=== PATIENT | female | born 1940 | race Caucasian/White ===

== ENCOUNTER 2017-03-14 22:05 | Observation (INO) | payer MEDICARE, OTHER ==
[~2017-03-14] VITALS: Ht 162.6 cm; Wt 99.0 kg
[~2017-03-14 22:05] MED LIST: ASCO100089 PO; ATOR80TA77 PO; CHOL10002 PO; CHOL200020 PO; COU5 PO; FURO20TA PO; GLIP2.5T2 PO; IRBE150T21 PO; IRBE300T18 PO; METO25TA6 PO; MTP50TCR PO; MULT-56 PO; PROP225C6 PO; SMV40T PO; WARF2.5T82 PO; WARF5TAB7 PO; atorvastatin
[2017-03-14 22:19] VITALS: BP 173/81; PULSE 59; RESP 18; O2SAT 99
--- NOTE | 2017-03-14 22:33 | ED.REPORT ---
HPI-General Illness Date of Service Mar 14, 2017 ED Provider: Leon Singh DO Pt is a 76 y/o female with a history of DM II, a-fib, HTN, and hyperlipidemia on Warfarin who presents to the ED c/o hypoglycemia onset today. She states she has been running hypoglycemic all day today. Her lowest reading was at 45, in which she tried another glucometer and had the same results. Pt reports having feelings of "low sugar" that she cannot describe. She has a current UTI that is being treated by Cipro. She denies fever, chills, cough, nausea, vomiting, diarrhea, constipation, SOB, or any other symptoms. Nursing Notes Stated Complaint: LOW BLOOD SUGAR Chief Complaint: General Complaint Nursing Notes Reviewed: Yes Allergies: Coded Allergies: metformin (Verified Allergy, Mild, Rash, 03/14/17) lisinopril (Verified Allergy, Unknown, 09/18/14) Scheduled ([atorvastatin]) 80 DAILY Ascorbic Acid (Vitamin C) 1,000 Mg Tab.chew 500 MG PO DAILY Atorvastatin Calcium (Atorvastatin Calcium) 80 Mg Tablet 80 MG PO DAILY Cholecalciferol-Expunged Drug, Do Not Renew! (Vitamin D3-Expunged Drug, Do Not Renew!) 1,000 Unit Tablet 1,000 UNITS PO DAILY Furosemide-Expunged Drug, Do Not Renew! (Furosemide-Expunged Drug, Do Not Renew! ) 20 Mg Tablet 20 MG PO DAILY Glipizide ER (Glipizide ER) 2.5 Mg Tab.er.24 2.5 MG PO DAILY Irbesartan (Irbesartan) 300 Mg Tablet 300 MG PO DAILY Irbesartan-Expunged Drug, Do Not Renew! (Irbesartan-Expunged Drug, Do Not Renew! ) 150 Mg Tablet 300 MG PO DAILY Metoprolol Suc-Expunged Drug, Do Not Renew! (Metoprolol Suc-Expunged Drug, Do Not Renew!) 50 Mg Tber 25 MG PO BID Metoprolol Tartrate (Metoprolol Tartrate) 25 Mg Tablet 25 MG PO BID Metoprolol Tartrate (Metoprolol Tartrate) 25 Mg Tablet 25 MG PO BID Propafenone-Expunged Drug, Do Not Renew! (Propafenone-Expunged Drug, Do Not Renew!) 225 Mg Cap.er.12h 325 MG PO BID Simvastatin-Expunged Drug, Choose New Med! (Simvastatin-Expunged Drug, Choose New Med!) 40 Mg Tablet 20 MG PO HS INPATIENT MAX DOSE 40 MG Warfarin Inactive Drug Do Not Use (Coumadin Inactive Drug Do Not Use) 5 Mg Tablet 5 MG PO Mon,Wed,Fri,Sat 1700 (5 PM) DAILY Warfarin Inactive Drug Do Not Use (Coumadin Inactive Drug Do Not Use) 5 Mg Tablet 2.5 MG PO Tue,,Tuesday AND TUESDAY Warfarin Sodium (Warfarin Sodium) 5 Mg Tablet 5 MG PO DAILY Warfarin Sodium (Warfarin Sodium) 2.5 Mg Tablet 2.5 MG PO DAILY Miscellaneous Medications Cholecalciferol (Vitamin D3) (Vitamin D-3) 2,000 Unit Capsule 1,000 UNIT PO Irbesartan (Irbesartan) 300 Mg Tablet 300 MG PO Multivitamin (Daily Vitamin) 1 Each Tablet 1 EACH PO Propafenone ER (Propafenone ER) 225 Mg Cap.er.12h 225 MG PO General Time Seen by MD: 22:33 Chief Complaint Other (Hypoglycemia) Hx Obtained From: Patient Arrived By: Walk-in Sudden in Onset?: Yes Onset Occurred: 5 - 8 hours ago Context Related History: Reports Diabetes mellitus Recent Healthcare: No recent hospitalization, Recent doctor visit Similar Sx Previous: No Past Medical History Past Medical History A-fib Hiatal hernia Edema Anxiety Reports: Diabetes mellitus, Hyperlipidemia, Hypertension Past Surgical History Bladder surgery, recent cardiac ablation for atrial fibrillation Reports: Cholecystectomy, Hysterectomy Smoking History Never Smoker Social History Alcohol Use: Denies alcohol use Other Social History: Ambulatory Status Independent Review of Systems Hypoglycemia Full Review of Systems Constitutional: Denies: Chills, Fever Respiratory: Denies: Non-productive cough, Prod cough, clear, Shortness of breath GI: Denies: Constipation, Diarrhea, Nausea, Vomiting Complete sys rev & neg: except as marked. Physical Exam Vital Signs Vital Signs Date Time Temp Pulse Resp B/P Pulse Ox O2 Delivery O2 Flow Rate FiO2 03/15/17 06:04 66 14 152/48 96 Room Air 03/15/17 01:36 36.5 56 15 152/53 94 Room Air 03/15/17 00:20 66 22 155/54 94 Room Air 03/14/17 22:19 36.2 59 18 173/81 99 Room Air Initial VS: Reviewed Head / Eyes: Atraumatic, Normocephalic Neck: Supple, Full range of motion Abdomen / GI: Soft, Non-tender Extremities: Vascular intact, Neuro intact, No swelling, No tenderness Skin: Warm, Dry, No cyanosis Neurologic: Alert, Oriented, Nonfocal Psychiatric: Mood/affect normal, Behavior normal, Normal thought content General/Constitutional: Awake, Alert Appearance / Presentation: Positive: Obese Respiratory / Chest: Atraumatic, Breath sounds NL, Breath sounds = bilat, No respiratory distress Cardiovascular: Heart rate NL, Regular rhythm, Heart sounds NL Interpretation & Diagnostics Lab Results Interpretation Result Diagram: 03/14/170 03/14/172239 Test 03/14/17 22:36 03/14/17 22:40 Urine Color Yellow (YELLOW) Urine Appearance Slightly cloudy Urine pH 5.5 (5.0-8.0) Urine Specific [place] 1.015 (1.003-1.035) Urine Protein Negativemg/dL (NEG,TRACE) Urine Glucose (UA) Negativemg/dL (NEGATIVE) Urine Ketones Negativemg/dL (NEGATIVE) Urine Occult Blood Negative (NEGATIVE) Urine Nitrite Negative (NEGATIVE) Urine Bilirubin Negative (NEGATIVE) Urine Urobilinogen Normalmg/dL (NORMAL) Urine Leukocyte Esterase Small (NEGATIVE) Urine RBC 0-2/hpf (0-2) Urine WBC 11-50/hpf (0-5) Urine Epithelial Cells Moderate/hpf (NONE-MOD) Urine Crystals None seen (NONE SEEN) Urine Bacteria Few/hpf (NONE-FEW) Urine Hyaline Casts None/lpf (NONE) Urine Granular Casts None seen (NONE SEEN) Urine Waxy Casts None seen (NONE SEEN) Urine Red Blood Cell Casts None seen (NONE SEEN) Urine White Blood Cell Casts None seen (NONE SEEN) Urine Mucus None seen (None Seen) Urine Trichomonas None seen (NONE SEEN) Urine Yeast None (NONE SEEN) Urinalysis Comment None Urine Culture Reflexed Indicated White Blood Count 9.1th/mm3 (3.8-10.1) Red Blood Count 4.36mil/mm3 (3.90-5.20) Hemoglobin 13.5g/dL (12.0-15.6) Hematocrit 40.3% (35.0-46.0) Mean Corpuscular Volume 92.4fL (81-100) Mean Corpuscular Hemoglobin 31.0pg (27.0-35.0) Mean Corpuscular Hemoglobin Concent 33.5% (32.0-37.0) Red Cell Distribution Width 13.8% (12.3-15.4) Platelet Count 288bil/L (150-400) Neutrophils (%) (Auto) 46.1% (40-74) Lymphocytes (%) (Auto) 37.8% (14-46) Monocytes (%) (Auto) 13.9% (4-12) Eosinophils (%) (Auto) 1.7% (0-5) Basophils (%) (Auto) 0.4% (0-3) Prothrombin Time 33.1sec (8.1-12.5) Prothromb Time International Ratio 3.02ratio Sodium Level 140mEq/L (134-144) Potassium Level 4.2mEq/L (3.5-5.2) Chloride Level 102mEq/L (97-108) Carbon Dioxide Level 24mmol/L (18-29) Blood Urea Nitrogen 21mg/dL (8-27) Creatinine 1.30mg/dL (0.57-1.00) Estimat Glomerular Filtration Rate 57mL/min (>59) Glucose Level 96mg/dL (60-99) Calcium Level 9.8mg/dL (8.5-10.1) Total Bilirubin 0.3mg/dL (0.0-1.2) Aspartate Amino Transf (AST/SGOT) 22U/L (0-50) Alanine Aminotransferase (ALT/SGPT) 22U/L (0-32) Alkaline Phosphatase 83U/L (25-165) Total Protein 7.3g/dL (6.4-8.4) Albumin 4.0g/dL (3.4-5.0) Re-Eval/Medical Decision Med Decision/Clinical Course This a very pleasant newly diagnosed type II diabetic and has been placed on glipizide for about a month. She has been a difficulties with hypoglycemia. Today she was feeling hypoglycemic and this was confirmed with a blood sugar reading in the 40s. She ate and drank and did not bring her blood sugar up since she came in. On presentation she had normal exam her blood sugars in the 80s. She was given juice and her blood sugar trended up. She has been observed for 4 hours and her blood sugars now roughly 115. She is asymptomatic. He does look like she has a urinary tract infection. She is on warfarin and her INRs roughly 3. Going to culture her urine. Place her on Keflex. She is not to take glipizide for blood sugars greater than 180. She watch her blood sugar closely. Follow diabetic diet. Repeat her INR in 3 days and see her doctor this week in follow-up. Source of Hx: Old records Counseled Regarding: Diagnosis, Lab results Discharge & Departure Shift Change Sign-Out Response to Therapy: Improved Departure Notes Patient remains hypoglycemic despite multiple small meals. She is not rising as hoped and expected, and is therefore placed on D5W drip and admitted observation status. UTI will be treated initially with an IV dose of Rocephin. Primary Impression: Hypoglycemia due to type 2 diabetes mellitus Additional Impression: Urinary tract infection Urinary tract infection type: acute cystitis Hematuria presence: without hematuria Qualified Code: N30.00 - Acute cystitis without hematuria Discharge Condition All VS Reviewed: Yes Condition: Stable Patient Instructions: Hypoglycemia in a Person with Diabetes (GEN), Urinary Tract Infection in Women (DC) Additional Instructions: Check your blood sugar every 2 hours tonight and anytime you feel like your blood sugar is getting low. Do not take your glipizide until your blood sugars consistently greater than 180. Your INR is 3.0. You may start taking her warfarin tomorrow. Have your INR checked in 3 days because you are going to be put on Keflex for the urine infection. The Keflex may alter the efficacy of the warfarin and thin your blood further. We are culturing your urine. Follow- up this week with your primary care physician to review the urine culture results. Take Keflex 3 times daily for 5 days. Return if any problems or any new or worrisome symptoms. Referrals: Rebekah Ignacio MD (PCP) Care Transferred to: [facility] Transferred at: 03:00 Scribe Attestation Portions of this note were transcribed by Vianey Ku. I, Dr. Singh, personally performed the history, physical exam and medical decision-making; I reviewed and confirmed the accuracy of the information in the transcribed note. copies to: Rebekah Ignacio MD, Todd P DO Mar 14, 2017 22:33 Vianey Ku Mar 15, 2017 00:08 Gurjit Devi MD Mar 15, 2017 07:08
[2017-03-14 22:48] LABS: BASOPHILS % (AUTO) 0.4 % (0-3); EOSINOPHILS % (AUTO) 1.7 % (0-5); MONOCYTES % (AUTO) 13.9 % (4-12); Mean Corpuscular Volume 92.4 fL (81-100); NEUTROPHILS % (AUTO) 46.1 % (40-74); Platelet Count 288 bil/L (150-400)
[2017-03-14 22:52] LABS: APPEARANCE,URINE SLIGHTLY CLOUDY (CLEAR,HAZY); COLOR,URINE YELLOW (YELLOW); OCCULT BLOOD,URINE NEGATIVE (NEGATIVE); PH,URINE 5.5 (5.0-8.0); UROBILINOGEN,URINE NORMAL (NORMAL)
[2017-03-15] VITALS (11 sets, daily range): BP systolic 123–159; BP diastolic 48–82; PULSE 56–70; RESP 14–22; O2SAT 94–96
[2017-03-15 00:06] LABS: INR 3.02 ratio
[2017-03-15] MEDS ORDERED: Dextrose 5% 250 ML IV ONE (05:53)
[2017-03-15] MEDS ORDERED: Dextrose 5% 1,000 ML IV SCH (05:55)
[2017-03-15] MEDS ORDERED: cefTRIAXone Inj 2,000 MG in Dextrose 5% Minibag Plus 50 ML IV ONE (05:55)
[2017-03-15] MEDS ORDERED: Ondansetron 2 mg/mL 2 mL Inj IVPUSH PRN (05:55)
[2017-03-15] MEDS ORDERED: OXYB5TAB PO (08:10)
[2017-03-15] MEDS ORDERED: OMEP1PAC5 PO (08:15)
--- NOTE | 2017-03-15 08:20 | PCM.HPMED ---
Subjective Date of Service Mar 15, 2017 Primary Provider: Admitting Physician: Angel Molina MD Primary Care Physician: Rebekah Ignacio MD Attending Physician: Angel Molina MD Chief Complaint: Hypoglycemia History of Present Illness: 76-year-old female with diabetes, A. fib, hypertension, HLD presented after serial episode of low sugar noticed at home. Patient was diagnosed with type II diabetes in 2001, had been diet controlled until 5-4 weeks ago. PCP noticed that her A1c was slowly creeping up to 7.1 recently, decided to treat with oral hypoglycemic agent. Patient first started on metformin but developed diarrhea on top of her chronic diarrhea, therefore it was stopped. Patient then start taking glipizide for last 4-5 weeks. Patient's sugar is normally 70s to 80s fasting with glipizide, had not experienced any low sugar symptoms at all until yesterday. Patient checked her sugar after dinner, it was 50s, continued to be 45. Patient fell little weak but no other associated symptoms such as shaking or sweating, confusion, chest pain, cough, sputum, nausea, vomiting, abdominal pain. Patient has been taking up heal for urinary incontinence prescribed by urologist, which helped her incontinence and chronic diarrhea which she had for few years. Last week patient developed this diarrhea again, watery, no mucus no bloody, up to 5 times per day to 10 times per day. Patient went to PCP again , stool was tested came back negative. However her urine study shows cystitis, prescribed ciprofloxacin for 3 days which she finished. Patient did not have any changes of her urinary habits denied dysuria, more frequent urination, urinary urge. Patient was not told that her kidney function is bad, but was told that she was dehydrated. Patient has been compliant to her medication including Coumadin, LALO inhibitor. In the emergency vitals were stable, On presentation she had normal exam her blood sugars in the 80s. She was given juice and her blood sugar trended up. She has been observed for 4 hours and her blood sugars now roughly 115. Patient was started on D5W drip. UA showed probable ongoing cystitis, was given ceftriaxone 1 dose and ciprofloxacin. During the interview on the floor [facility] [place], patient was alert and oriented, denied headache, dizziness, tiredness, very pleasant and communicative. Review of Systems: Pertinent positives as noted in history of present illness. All other systems were reviewed and are negative Allergies Coded Allergies: metformin (Verified Allergy, Mild, Rash, 03/14/17) lisinopril (Verified Allergy, Unknown, 09/18/14) Home Medications Atorvastatin Calcium (Atorvastatin Calcium) 80 Mg Tablet 80 MG PO DAILY Cholecalciferol-Expunged Drug, Do Not Renew! (Vitamin D3-Expunged Drug, Do Not Renew!) 1,000 Unit Tablet 1,000 UNITS PO DAILY Glipizide ER (Glipizide ER) 2.5 Mg Tab.er.24 2.5 MG PO DAILY Irbesartan (Irbesartan) 300 Mg Tablet 300 MG PO DAILY Metoprolol Suc-Expunged Drug, Do Not Renew! (Metoprolol Suc-Expunged Drug, Do Not Renew!) 50 Mg Tber 25 MG PO BID Propafenone-Expunged Drug, Do Not Renew! (Propafenone-Expunged Drug, Do Not Renew!) 225 Mg Cap.er.12h 325 MG PO BID Warfarin Inactive Drug Do Not Use (Coumadin Inactive Drug Do Not Use) 5 Mg Tablet 5 MG PO Mon,Wed,Tue,Sat 1700 (5 PM) DAILY Warfarin Inactive Drug Do Not Use (Coumadin Inactive Drug Do Not Use) 5 Mg Tablet 2.5 MG PO Tue,,Tuesday AND TUESDAY PMH As described above in history of present illness Surgical History 2 benign breast nodules remotely removed 2001 hysterectomy Cystocele, rectocele repair Ablation twice for A. fib Family History Father had heart attack in 50s in 90s Social History Hx Alcohol Use: No Hx Substance Use: No Hx Tobacco Use: No Smoking Status: Never Smoker Exam Vital Signs Vital Sign - Last Date Time Temp Pulse Resp B/P Pulse Ox O2 Delivery O2 Flow Rate FiO2 03/15/17 06:43 36.5 66 14 152/48 96 Room Air Intake and Output 03/14/17 03/14/17 03/15/17 Cumulative From/Thru 15:00 23:00 07:00 03/14/17 22:19 - 03/15/17 05:58 Intake Total 250 ml 250 ml Balance 250 ml 250 ml Intake IV Total 250 ml 250 ml Exam NAD, comfortably laying down on the bed no JVD, MMM, no LAD RRR, nl s1, s2 no mrg CTAB, no w,c S,ND,NT,normoactive BS+ warm, no edema, pulses 2/2 Lab and Diagnostics Result Diagram: 03/14/17223903/14/172239 Assessment & Plan 76-year-old female with diabetes, A. fib, hypertension, HLD presented after serial episode of low sugar noticed at home, subtle symptomatic chg. Acute, active Hypoglycemia, POA, due to newly started sulfonylurea in the setting of a MARKEL, cystitis. glc normalized with D5w, pt is asymptomatic prior to presentation. -stop d5w now, monitor glc q4h, -stop glipizide, pt likely needs to try third agent, defer to PCP -awaits a1c, expected be around 7.0 Cystitis, POA, with chronic urinary incontinence, no signs of SIRS -will continue cipro for 2more days based on UA, pyuria, bacteriuria. -resume likely Oxybutynin MARKEL, likely prerenal from GI fluid loss given chronic diarrhea, encourage oral fluid intake. Chronic, stable afib, s/p ablation, rate controlled on BB, INR3.02, mildly elevated in the setting of acute illness, MARKEL, will continue coumadin, metoprolol HLD, continue lipitor chronic diarrhea, recent stool study normal, pt stated that she had extensive eval in the past, nothing pertinent. pt denied any abdominal sx. exam is benign. -observe stools for now, Dispo: Patient is admitted under observation status with expectation that she will be discharged within 24-48 hours, diet:general dvt ppx:HSQ Full code Time spent 65 minutes Destin Carvalho MD Mar 15, 2017 08:20
[2017-03-15] MEDS: Dextrose 5% 1,000 ML IV SCH ×2 (09:36→14:16)
[2017-03-15] MEDS: Pantoprazole 40 mg ER24 Tablet PO SCH (10:16)
[2017-03-15 10:24] LABS: INR 3.06 ratio
--- NOTE | 2017-03-15 11:11 | NUR ---
Case Management: DALIA given and explained to pt. Iman ESPINOZA RN
--- NOTE | 2017-03-15 11:22 | PCM.PHAPRO ---
Progress Date of Service: Mar 15, 2017 Warfarin dosing Date INR 3.06 INR change Warf Dose Hold Marlene Valencia PharmD Mar 15, 2017 11:22
[2017-03-15] MEDS ORDERED: PROPAFENONE 150 MG PO SCH (14:05)
[2017-03-15] MEDS: PROPAFENONE 225 MG PO SCH ×2 (14:28→21:27)
--- NOTE | 2017-03-15 16:55 | NUR ---
spiritual care: pt request visit attempt; pt sleeping, did not rouse to voice. will follow
--- NOTE | 2017-03-15 17:10 | NUR ---
Shift Report: Patient admitted for hypoglycemia. D5W turned off per order. CBG's taken q2hr x 4 - reassuring. Will monitor creatinine in morning for possible d/c tomorrow. VSS.
--- NOTE | 2017-03-15 17:37 | NUR ---
Social Work Note: Initial Assessment Data& Assessment: EMR Reviewed. LOTUS NOTES ADMINISTRATOR met with pt at bedside to discuss discharge planning, LOTUS NOTES ADMINISTRATOR role explained. Yahaira Stein is a 76 year old female admitted under observation for hypoglycemia on 03/15/2017. Pt has Medicare and [employer] insurance coverage and sees Rebekah Ignacio MD for primary care. Pt lives in [place] with her and is independent at baseline with all ADL's and no DME needs. Pt drives. Pt does not have HH or SNF hx. Pt does not have LTC insurance or [facility] service connection, pt is a though. Pt provided with DPOA/AD paperwork to review and complete when possible. Pt is ambulating SBA in her room and does not have concerns about returning home at her baseline when medically ready. Pt state she and her recently sold their multilevel home and will be moving into a single story home in order to age in place. Pt to transport pt home when medically ready. MD does not identify any concerns for pt capacity for self care at this time. Pt provided with Discharge planning checklist packet. Pt denies any other needs. No other discharge needs identified. Plan: Anticipated discharge home via POV when medically ready. Pt denies any other needs. No other discharge needs identified RIGO Maya Addendum: 03/15/17 at 1741 by MARISOL FERREIRA Amended: Links added.
[2017-03-15] MEDS ORDERED: PROPAFENONE 225 MG PO SCH (20:30)
[2017-03-16 01:03] VITALS: BP 102/65; PULSE 63; RESP 16; O2SAT 94
--- NOTE | 2017-03-16 05:22 | NUR ---
Blood Sugar Continued checks q 4hr and educated patient on s/s of hypoglycemia and to use call light if she notices anything and I would be happy to check at any time. Pt ambulating to bathroom with steady gait, just "a bit slower" per patient. SBA for safety and to evaluate the first two times, independent to restroom now. Frequent rounding continues.
[2017-03-16 06:02] VITALS: BP 140/72; PULSE 59; RESP 16; O2SAT 96
[2017-03-16] MEDS: Pantoprazole 40 mg ER24 Tablet PO SCH (06:34)
[2017-03-16 07:24] LABS: INR 2.1 ratio
[2017-03-16] MEDS: PROPAFENONE 225 MG PO SCH (08:54)
--- NOTE | 2017-03-16 08:57 | PCM.PHAPRO ---
Progress Date of Service: Mar 16, 2017 Warfarin dosing WARFARIN MANAGEMENT A\ 76 YO F ADMITTED FOR HYPOGLYCEMIA WITH HISTORY OF AFIB HOME DOSE WARFARIN 5MG MWF 2.5MG ALL OTHER DAYS GOAL INR=2-3 CURRENT INR= 2.1 PT INR HAS DROPPED SIGNIFICANTLY OVER NIGHT. PROPAFENONE AND CIPRO CAN BOTH INCREASE BLEEDING RISK. PANTOPRAZOLE CAN INCREASE INR. P\ PT INR DROPPED SIGNIFICANTLY WILL BEGIN HER BACK ON HER HOME WARFARIN REGIMENT. WARFARIN 5MG PO X1 TONIGHT AND WILL CHECK AN INR WITH [facility]. Isaias Sylvester [facility] Mar 16, 2017 08:57
--- NOTE | 2017-03-16 10:01 | PCM.DIMED ---
Discharge Instructions Date of Service Mar 16, 2017 Dates of Hospitalization Mar 15, 2017 at 06:11 Discharge Diagnosis Discharge Diagnosis acute dx Hypoglycemia due to newly started sulfonylurea in the setting of a MARKEL, cystitis Cystitis, POA, with chronic urinary incontinence, resolved MARKEL, likely prerenal from GI fluid loss given chronic diarrhea Chronic dx afib, s/p ablation, HLD, chronic diarrhea Medication Instructions Additional med instructions PLEASE STOP TAKING GLIPIZIDE UNTIL YOU SEE YOUR DOCTOR Diet Discharge Diet: Diabetic Activity Discharge Activity: No restrictions Patient Instructions Patient Instructions you were hospitalized with low glucose likely due to your medication. You were monitored closely, blood sugar increased appropriately. Please follow up with your doctor in one week, adjust medication as we discussed Follow-up Provider: Rebekah Ignacio MD Follow-up with PCP in: 1 week Destin Carvalho MD Mar 16, 2017 10:01
[2017-03-16 10:45] VITALS: PULSE 68
--- NOTE | 2017-03-16 11:16 | NUR ---
Discharge at 1120 Reviewed DC instructions with patient and . Answered all questions. No new scripts Pt taken out in w/ch to home in private auto to home with family. All belongings, including phone and computer taken.
--- NOTE | 2017-03-16 11:24 | NUR ---
Social Work: Discharge Data: EMR reviewed. Patient is on day 1 of hospitalization for hypoglyemia per H&P. Patient was discussed in morning rounds and has been deemed medically stable for discharge per MD. Patient will discharge home in POV. No needs are anticipated at this time. Assessment: Patient will discharge home. Plan: Patient will discharge home today. Patient has no additional needs at this time. RIGO Tabor
--- NOTE | 2017-03-16 13:27 | PCM.DC.MED ---
Discharge Summary Date of Service Mar 16, 2017 Dates of Hospitalization Date of Hospital Admission Mar 15, 2017 at 06:11 Date of Discharge: Mar 16, 2017 Providers: Admitting Physician: Angel Molina MD Primary Care Physician: Rebekah Ignacio MD Attending Physician: Destin Carvalho MD Diagnosis at Time of Discharge Diagnosis at Time of Discharge acute dx Hypoglycemia due to newly started sulfonylurea in the setting of a MARKEL, cystitis Cystitis, POA, with chronic urinary incontinence, resolved MARKEL, likely prerenal from GI fluid loss given chronic diarrhea Chronic dx afib, s/p ablation, HLD, chronic diarrhea Brief History HPI obtained on 03/15 76-year-old female with diabetes, A. fib, hypertension, HLD presented after serial episode of low sugar noticed at home. Patient was diagnosed with type II diabetes in 2001, had been diet controlled until 5-4 weeks ago. PCP noticed that her A1c was slowly creeping up to 7.1 recently, decided to treat with oral hypoglycemic agent. Patient first started on metformin but developed diarrhea on top of her chronic diarrhea, therefore it was stopped. Patient then start taking glipizide for last 4-5 weeks. Patient's sugar is normally 70s to 80s fasting with glipizide, had not experienced any low sugar symptoms at all until yesterday. Patient checked her sugar after dinner, it was 50s, continued to be 45. Patient fell little weak but no other associated symptoms such as shaking or sweating, confusion, chest pain, cough, sputum, nausea, vomiting, abdominal pain. Patient has been taking up heal for urinary incontinence prescribed by urologist, which helped her incontinence and chronic diarrhea which she had for few years. Last week patient developed this diarrhea again, watery, no mucus no bloody, up to 5 times per day to 10 times per day. Patient went to PCP again , stool was tested came back negative. However her urine study shows cystitis, prescribed ciprofloxacin for 3 days which she finished. Patient did not have any changes of her urinary habits denied dysuria, more frequent urination, urinary urge. Patient was not told that her kidney function is bad, but was told that she was dehydrated. Patient has been compliant to her medication including Coumadin, LALO inhibitor. In the emergency vitals were stable, On presentation she had normal exam her blood sugars in the 80s. She was given juice and her blood sugar trended up. She has been observed for 4 hours and her blood sugars now roughly 115. Patient was started on D5W drip. UA showed probable ongoing cystitis, was given ceftriaxone 1 dose and ciprofloxacin. During the interview on the floor MOC, patient was alert and oriented, denied headache, dizziness, tiredness, very pleasant and communicative. Hospital Course 76-year-old female with diabetes, A. fib, hypertension, HLD presented after serial episode of low sugar noticed at home, subtle symptomatic chg. Brief hospital course Patient was admitted with persistent hypoglycemia in ED stay, patient was briefly on D5W drip, then monitored closely without any fluid. A1c came back 6.3 decreased from 7.0 from recent blood draws per patient. Patient remained asymptomatic. Blood sugar was increased appropriately after holding glipizide on admission. Since glipizide is relatively new medicine, likely caused mild degree of hypoglycemia, it was recommended to hold at the moment. However, given patient's first episode, largely asymptomatic hypoglycemia, further adjustment including resuming glipizide with decreased dosage was recommended. pt wanted to have further discussion with PCP, decided to continue diet control until pt sees PCP. Acute, active Hypoglycemia, POA, due to newly started sulfonylurea in the setting of a MARKEL, cystitis. glc normalized with D5w, pt is asymptomatic prior to presentation. -stop d5w now, monitor glc q4h, -stop glipizide, pt likely needs to try third agent, defer to PCP -awaits a1c, expected be around 7.0 Cystitis, POA, with chronic urinary incontinence, no signs of SIRS -will continue cipro for 2more days based on UA, pyuria, bacteriuria. -resume likely Oxybutynin MARKEL, likely prerenal from GI fluid loss given chronic diarrhea, encourage oral fluid intake. Chronic, stable afib, s/p ablation, rate controlled on BB, INR3.02, mildly elevated in the setting of acute illness, MARKEL, will continue coumadin, metoprolol HLD, continue lipitor chronic diarrhea, recent stool study normal, pt stated that she had extensive eval in the past, nothing pertinent. pt denied any abdominal sx. exam is benign. -observe stools for now, Dispo: Patient is admitted under observation status with expectation that she will be discharged within 24-48 hours, diet:general dvt ppx:HSQ Full code Exam Vital Signs (Last) Date Time Temp Pulse Resp B/P Pulse Ox O2 Delivery O2 Flow Rate FiO2 03/16/17 10:45 68 03/16/17 06:02 36.4 16 140/72 96 Room Air Exam Patient was examined on the day of discharge Test 03/14/17 22:36 03/14/17 22:40 03/16/17 06:44 Urine Color Yellow (YELLOW) Urine Appearance Slightly cloudy Urine pH 5.5 (5.0-8.0) Urine Specific [place] 1.015 (1.003-1.035) Urine Protein Negativemg/dL (NEG,TRACE) Urine Glucose (UA) Negativemg/dL (NEGATIVE) Urine Ketones Negativemg/dL (NEGATIVE) Urine Occult Blood Negative (NEGATIVE) Urine Nitrite Negative (NEGATIVE) Urine Bilirubin Negative (NEGATIVE) Urine Urobilinogen Normalmg/dL (NORMAL) Urine Leukocyte Esterase Small (NEGATIVE) Urine RBC 0-2/hpf (0-2) Urine WBC 11-50/hpf (0-5) Urine Epithelial Cells Moderate/hpf (NONE-MOD) Urine Crystals None seen (NONE SEEN) Urine Bacteria Few/hpf (NONE-FEW) Urine Hyaline Casts None/lpf (NONE) Urine Granular Casts None seen (NONE SEEN) Urine Waxy Casts None seen (NONE SEEN) Urine Red Blood Cell Casts None seen (NONE SEEN) Urine White Blood Cell Casts None seen (NONE SEEN) Urine Mucus None seen (None Seen) Urine Trichomonas None seen (NONE SEEN) Urine Yeast None (NONE SEEN) Urinalysis Comment None Urine Culture Reflexed Indicated White Blood Count 9.1th/mm3 (3.8-10.1) Red Blood Count 4.36mil/mm3 (3.90-5.20) Hemoglobin 13.5g/dL (12.0-15.6) Hematocrit 40.3% (35.0-46.0) Mean Corpuscular Volume 92.4fL (81-100) Mean Corpuscular Hemoglobin 31.0pg (27.0-35.0) Mean Corpuscular Hemoglobin Concent 33.5% (32.0-37.0) Red Cell Distribution Width 13.8% (12.3-15.4) Platelet Count 288bil/L (150-400) Neutrophils (%) (Auto) 46.1% (40-74) Lymphocytes (%) (Auto) 37.8% (14-46) Monocytes (%) (Auto) 13.9% (4-12) Eosinophils (%) (Auto) 1.7% (0-5) Basophils (%) (Auto) 0.4% (0-3) Hemoglobin A1c 6.3% (4.8-5.6) Prothrombin Time 22.8sec (8.1-12.5) Prothromb Time International Ratio 2.10ratio Sodium Level 141mEq/L (134-144) Potassium Level 4.7mEq/L (3.5-5.2) Chloride Level 101mEq/L (97-108) Carbon Dioxide Level 24mmol/L (18-29) Blood Urea Nitrogen 25mg/dL (8-27) Creatinine 1.06mg/dL (0.57-1.00) Estimat Glomerular Filtration Rate 73mL/min (>59) Glucose Level 126mg/dL (60-99) Calcium Level 9.8mg/dL (8.5-10.1) Total Bilirubin 0.3mg/dL (0.0-1.2) Aspartate Amino Transf (AST/SGOT) 17U/L (0-50) Alanine Aminotransferase (ALT/SGPT) 19U/L (0-32) Alkaline Phosphatase 74U/L (25-165) Total Protein 6.6g/dL (6.4-8.4) Albumin 3.9g/dL (3.4-5.0) Discharge Medications Discharge Medications Ascorbic Acid (Vitamin C) 1,000 Mg Tab.chew 500 MG PO DAILY (Reported) Atorvastatin Calcium (Atorvastatin Calcium) 80 Mg Tablet 80 MG PO DAILY ( Reported) Irbesartan (Irbesartan) 300 Mg Tablet 300 MG PO DAILY (Reported) Metoprolol Tartrate (Metoprolol Tartrate) 25 Mg Tablet 25 MG PO BID (Reported) Omeprazole/Sodium Bicarbonate (Omeprazole-Bicarb 20-1,680 Pkt) 20 Mg-1,680 Mg Packet 1 EACH PO DAILY (Reported) Oxybutynin Chloride ER (Oxybutynin Chloride ER) 5 Mg Tab.er.24 5 MG PO DAILY ( Reported) Warfarin Sodium (Warfarin Sodium) 5 Mg Tablet 5 MG PO Mon, Wed, Fri (Reported) Warfarin Sodium (Warfarin Sodium) 2.5 Mg Tablet 2.5 MG PO Sun, [place], Thur, Sat ( Reported) Miscellaneous Medications Cholecalciferol (Vitamin D3) (Vitamin D-3) 2,000 Unit Capsule 1,000 UNIT PO ( Reported) Propafenone ER (Propafenone ER) 225 Mg Cap.er.12h 225 MG PO (Reported) Additional med instructions PLEASE STOP TAKING GLIPIZIDE UNTIL YOU SEE YOUR DOCTOR Followup Plan Disposition: home Discharge Diet: Diabetic Discharge Activity: No restrictions Patient Instructions you were hospitalized with low glucose likely due to your medication. You were monitored closely, blood sugar increased appropriately. Please follow up with your doctor in one week, adjust medication as we discussed Follow-up Provider: Rebekah Ignacio MD Follow-up with PCP in: 1 week Time spent 65min Destin Carvalho MD Mar 16, 2017 13:27
== END 2017-03-16 11:15 | disposition home or self-care (01) ==
LOC: SED 22:05 → MOC 03-15 06:11
PROVIDERS: ADMIT Hospitalist; ATTEND Internal Medicine
DX: E11.649 Type 2 diabetes mellitus with hypoglycemia without coma (principal); T38.3X5A Adverse effect of insulin and oral hypoglycemic [antidiabetic] drugs, initial encounter; N30.00 Acute cystitis without hematuria; R32 Unspecified urinary incontinence; N17.9 Acute kidney failure, unspecified; K52.9 Noninfective gastroenteritis and colitis, unspecified; I10 Essential (primary) hypertension; I48.2 Chronic atrial fibrillation; E78.5 Hyperlipidemia, unspecified; Z79.01 Long term (current) use of anticoagulants; Z79.84 Long term (current) use of oral hypoglycemic drugs; Z98.890 Other specified postprocedural states
CPT/HCPCS: 36415; 80053; 81000; 82948; 83036; 85025; 85610; 87086; 87088; 96361; 96365; 99285; G0378; J0696